=== PATIENT | female | born 1965 | race Caucasian/White ===

== ENCOUNTER 2016-07-28 08:40 | Inpatient (IN) | payer BC, MEDICARE ==
[2016-07-28] MEDS ORDERED: CODEINE/GUAIFENESIN 5 ML SOL PO ONE (08:58)
[2016-07-28] MEDS ORDERED: ALBUTEROL/IPRATROPIUM 1 VIAL SOL INH ONE (08:58)
[2016-07-28] MEDS ORDERED: CODEINE/GUAIFENESIN 5 ML SOL ONE ×2 (09:03→09:04)
[2016-07-28] MEDS ORDERED: ALBUTEROL/IPRATROPIUM 1 VIAL SOL ONE (09:04)
[2016-07-28 09:11] LABS: BASOPHILS % (AUTO) 0 % (0-3); EOSINOPHILS % (AUTO) 1 % (0-9); HEMATOCRIT 37 % (35-47); MEAN CORPUSCULAR HGB CONC 34.2 gm/dl (32.0-36.0); MEAN CORPUSCULAR VOLUME 90 fL (81-99); NEUTROPHILS % (AUTO) 56.3 % (37-80)
[2016-07-28 09:37] LABS: ALBUMIN 3.4 gm/dl (3.4-5.0); CALCIUM 8.7 mg/dl (8.5-10.1)
[2016-07-28 09:39] LABS: POTASSIUM 2.7 mMol/L (3.5-5.1)
[2016-07-28] MEDS ORDERED: ALBUTEROL/IPRATROPIUM 1 VIAL SOL INH PRN (12:27)
[2016-07-28] MEDS ORDERED: POTASSIUM CHLORIDE 2 MEQ/ML SOL IV SCH (12:30)
[2016-07-28] MEDS ORDERED: LEVOFLOXACIN 25 MG/ML 500 MG in SODIUM CHLORIDE 0.9% 100 ML 100 ML IV SCH (12:30)
[2016-07-28] MEDS ORDERED: SOLUMEDROL 125 MG/2 ML 125 MG/2 ML PDS ONE (12:35)
[2016-07-28] MEDS: SOLUMEDROL 125 MG/2 ML 125 MG/2 ML PDS IV SCH ×3 (12:41→20:00)
[2016-07-28] MEDS ORDERED: POTASSIUM CHLORIDE 2 MEQ/ML 60 MEQ, LIDOCAINE HCL 1% MDV 2 ML in SODIUM CHLORIDE 0.9% 1... IV ONE ×2 (12:50→12:58)
[2016-07-28] MEDS ORDERED: CEFTRIAXONE 1 GM (PREMIX) 1 GM/50 ML SOL IV SCH (13:00)
[2016-07-28] MEDS ORDERED: POTASSIUM CHLORIDE 2 MEQ/ML SOL IV ONE (13:02)
[2016-07-28] MEDS ORDERED: LIDOCAINE HCL 1% MPF SOL ONE (13:02)
[2016-07-28] MEDS ORDERED: ACETAMINOPHEN 500 MG 500 MG TAB PO PRN (13:35)
[2016-07-28] MEDS ORDERED: ZOLPIDEM TARTRATE 5 MG TAB PO PRN (13:35)
[2016-07-28] MEDS ORDERED: TIZANIDINE HCL 4 MG PO PRN (13:35)
[2016-07-28] MEDS: ENOXAPARIN 40 MG SOL SC SCH ×2 (14:08→23:01)
[2016-07-28] MEDS ORDERED: AZITHROMYCIN 500 MG PDS 500 MG in SODIUM CHLORIDE 0.9% 500 ML 500 ML IV SCH (15:00)
[2016-07-28] MEDS: FLUOXETINE HYDROCHLORIDE 10 MG CAP PO SCH (15:24)
[2016-07-28] MEDS: LISINOPRIL 20 MG TAB PO SCH (15:25)
[2016-07-28] MEDS: HYDROCHLOROTHIAZIDE 25 MG TAB PO SCH (15:25)
[2016-07-28] MEDS ORDERED: AZITHROMYCIN 500 MG PDS IV ONE (15:49)
[2016-07-28] MEDS ORDERED: SODIUM CHLORIDE 0.9% 500 ML 500 ML IV ONE (15:49)
[2016-07-28] MEDS: CODEINE/GUAIFENESIN 5 ML SOL PO PRN ×2 (17:04→23:31)
[2016-07-28] MEDS: DOXYCYCLINE 100 MG TAB PO SCH (20:01)
[2016-07-28] MEDS ORDERED: CLONAZEPAM 0.5 MG TAB PO SCH (21:00)
[2016-07-28] MEDS: IBUPROFEN 600 MG TAB PO PRN (23:32)
[2016-07-29] MEDS: ENOXAPARIN 40 MG SOL SC SCH (01:57)
[2016-07-29 07:27] LABS: POTASSIUM 3.4 mMol/L (3.5-5.1)
[2016-07-29 07:36] LABS: BASOPHILS % (AUTO) 0 % (0-3); EOSINOPHILS % (AUTO) 0 % (0-9); HEMATOCRIT 34 % (35-47); MEAN CORPUSCULAR HGB CONC 34.9 gm/dl (32.0-36.0); MEAN CORPUSCULAR VOLUME 91 fL (81-99); NEUTROPHILS % (AUTO) 85.3 % (37-80)
[2016-07-29] MEDS ORDERED: KETOROLAC TROMETHAMINE 30 MG/ML SOL IV ONE (08:32)
[2016-07-29] MEDS ORDERED: PREDNISONE 20 MG TAB PO SCH (09:00)
[2016-07-29] MEDS ORDERED: POTASSIUM CHLORIDE 10 MEQ TER PO SCH (09:00)
[2016-07-29] MEDS ORDERED: ROSUVASTATIN CALCIUM 10 MG TAB PO SCH (09:00)
[2016-07-29] MEDS ORDERED: ENOXAPARIN 40 MG SOL SC SCH (09:00)
[2016-07-29] MEDS ORDERED: AZITHROMYCIN 250 MG TAB PO SCH (09:00)
[2016-07-29] MEDS ORDERED: CEFDINIR 300 MG CAP PO SCH (09:00)
[2016-07-29] MEDS: HYDROCHLOROTHIAZIDE 25 MG TAB PO SCH (09:16)
[2016-07-29] MEDS: DOXYCYCLINE 100 MG TAB PO SCH (09:16)
[2016-07-29] MEDS: LISINOPRIL 20 MG TAB PO SCH (09:18)
[2016-07-29] MEDS: FLUOXETINE HYDROCHLORIDE 10 MG CAP PO SCH (09:19)
[2016-07-29 12:22] VITALS: BP 144/80; PULSE 88; RESP 20; TEMP 98.2; O2SAT 97
[2016-07-29] MEDS ORDERED: ACETAMINOPHEN 500 MG 500 MG TAB PO ONE (12:57)
[2016-07-29] MEDS: IBUPROFEN 600 MG TAB PO PRN (13:26)
[2016-07-29] MEDS ORDERED: PNEUMOCOCCAL VACCINE 0.5 ML SOL IM ONE (15:42)
== END 2016-07-29 16:05 | disposition home or self-care (01) | DRG 144 ==
LOC: ED 08:40 → ACUTE CARE 12:20 → UNDOADMIN 12:20 → ACUTE CARE 12:45
PROVIDERS: ADMIT Family Medicine; ATTEND Family Medicine
DX: R06.00 Dyspnea, unspecified (principal); E87.6 Hypokalemia; R05 Cough; R06.02 Shortness of breath; R07.89 Other chest pain; R53.1 Weakness; R68.83 Chills (without fever)
CPT/HCPCS: 36415; 71020; 71275; 80048; 80053; 83880; 84484; 85025; 87804; 90732; 93012; 94150; 94640; 94664; 96374; 99070; 99221; 99284; 99285; J0456; J0696; J1650; J1885; J2930; J3480; J7620; Q9967; J2001

== ENCOUNTER 2017-09-22 10:26 | Emergency (ER) | payer BC, MEDICARE ==
[2017-09-22] MEDS ORDERED: HYDROMORPHONE 1 MG/ML SYRINGE IV ONE (10:33)
[2017-09-22] MEDS ORDERED: HYDROMORPHONE HCL 2 MG/ML SOL IV ONE ×2 (10:34→11:22)
[2017-09-22] MEDS ORDERED: HYDROMORPHONE HCL 2 MG/ML SOL ONE ×2 (10:36→11:23)
[2017-09-22] MEDS: SODIUM CHLORIDE 0.9% FLUSH 10 ML SOL IV PRN ×2 (10:43→11:25)
[2017-09-22 10:49] VITALS: RESP 16
[2017-09-22] MEDS ORDERED: CYCLOBENZAPRINE 10 MG TAB PO ONE (12:47)
[2017-09-22] MEDS ORDERED: CYCLOBENZAPRINE 10 MG TAB ONE (12:49)
[2017-09-22 12:53] VITALS: TEMP 97.4
[2017-09-22] MEDS ORDERED: LISINOPRIL 5 MG TAB ONE (13:01)
[2017-09-22 13:30] VITALS: BP 155/89; PULSE 64; O2SAT 95
[2017-09-23] MEDS ORDERED: LISINOPRIL 20 MG TAB PO SCH (09:00)
== END 2017-09-22 13:25 | disposition home or self-care (01) ==
LOC: ED 10:26
DX: M25.551 Pain in right hip (principal); S76.011A Strain of muscle, fascia and tendon of right hip, initial encounter; M06.9 Rheumatoid arthritis, unspecified
CPT/HCPCS: 72120; 73501; 96374; 99284; 99285; J1170; A9270-GY

== ENCOUNTER → 2017-11-19 | Day surgery (SDC) | payer BC, MEDICARE ==
[~2017-11-19] MED LIST: BUPIVACAINE HCL 0.25% MPF 10 ML SOL INFIL ONE; TRIAMCINOLONE ACETONIDE 40 MG/ML SUS ONE
[2017-11-19 13:29] VITALS: BP 121/65; PULSE 86; RESP 20; TEMP 97.4; O2SAT 98
== END | disposition home or self-care (01) ==
LOC: SURG 12:40
PROVIDERS: ATTEND Nurse Anesthetist, Certified Registered
DX: M12.88 Other specific arthropathies, not elsewhere classified, other specified site (principal)
CPT/HCPCS: J3300

== ENCOUNTER 2018-07-13 12:05 | Emergency (ER) | payer BC, MEDICARE ==
[2018-07-13] MEDS ORDERED: HYDROMORPHONE 1 MG/ML SYRINGE ONE ×2 (12:34→13:23)
[2018-07-13] MEDS ORDERED: SODIUM CHLORIDE 0.9% 1000ML 1,000 ML IV ONE (12:35)
[2018-07-13] MEDS ORDERED: HYDROMORPHONE 1 MG/ML SYRINGE IV ONE ×2 (12:35→13:27)
[2018-07-13 12:40] LABS: BASOPHILS % (AUTO) 1 % (0-3); EOSINOPHILS % (AUTO) 0 % (0-9); HEMATOCRIT 40 % (35-47); HEMOGLOBIN 12.7 gm/dl (12.0-15.5); LYMPHOCYTES % (AUTO) 27.3 % (10-50); MEAN CORPUSCULAR HEMOGLOBIN 32.1 pg (27.0-32.0); MEAN CORPUSCULAR HGB CONC 31.5 gm/dl (32.0-36.0); MONOCYTES % (AUTO) 10.3 % (0-12); NEUTROPHILS % (AUTO) 61.4 % (37-80)
[2018-07-13 12:42] LABS: CALCIUM 8.8 mg/dl (8.5-10.1); CARBON DIOXIDE 28.7 mEq/L (21-32); CREATININE 0.88 mg/dl (0.60-1.00); MEAN CORPUSCULAR VOLUME 102 fL (81-99); POTASSIUM 4.2 mMol/L (3.5-5.1)
[2018-07-13 14:24] VITALS: RESP 18; TEMP 98.4
[2018-07-13 15:18] LABS: APPEARANCE,URINE Clear; BILIRUBIN,URINE NEGATIVE (NEGATIVE); COLOR,URINE Yellow; GLUCOSE, URINE (UA) NEGATIVE (NEGATIVE); KETONES,URINE NEGATIVE (NEGATIVE); LEUKOCYTE ESTERASE ,URINE NEGATIVE (NEGATIVE); NITRATE,URINE NEGATIVE (NEGATIVE); OCCULT BLOOD,URINE NEGATIVE (NEG-TRACE); UROBILINOGEN,URINE 0.2 (0.2-1.0 EU)
[2018-07-13 15:28] LABS: BACTERIA NEGATIVE (< 1+); CRYSTALS NEGATIVE (0-3 AVE/HPF); EPITHELIAL CELLS 0-1 (SQUAMOUS); RBC,URINE NEG (0-3AV/HPF); WBC,URINE NEG (0-5AV/HPF)
[2018-07-13 19:32] VITALS: BP 140/81; PULSE 69; O2SAT 96
== END 2018-07-13 15:39 | disposition home or self-care (01) ==
LOC: ED 12:05
DX: R07.81 Pleurodynia (principal); M25.571 Pain in right ankle and joints of right foot; T14.90XA Injury, unspecified, initial encounter; W01.0XXA Fall on same level from slipping, tripping and stumbling without subsequent striking against object, initial encounter; R40.2362 Coma scale, best motor response, obeys commands, at arrival to emergency department; R40.2142 Coma scale, eyes open, spontaneous, at arrival to emergency department; R40.2252 Coma scale, best verbal response, oriented, at arrival to emergency department
CPT/HCPCS: 70450; 71045; 71260; 73560; 73600; 74177; 80048; 81001; 85025; 96365; 96374; 99283; 99285; G0390; Q9967; J1170

== ENCOUNTER → 2018-09-15 | Day surgery (SDC) | payer BC, MEDICARE ==
[~2018-09-15] MED LIST changes: -BUPIVACAINE HCL 0.25% MPF 10 ML SOL INFIL ONE; +BUPIVACAINE HCL 0.25% MPF 30 ML SOL INFIL ONE
[2018-09-15 11:18] VITALS: RESP 16
[2018-09-15 11:25] VITALS: BP 114/71; PULSE 85; TEMP 98.6; O2SAT 97
== END | disposition home or self-care (01) ==
LOC: SURG 10:06
PROVIDERS: ATTEND Nurse Anesthetist, Certified Registered
DX: M12.9 Arthropathy, unspecified (principal)
CPT/HCPCS: J3300